=== PATIENT | female | born 1965 | race Caucasian/White ===

== ENCOUNTER 2018-04-25 10:04 | Observation (INO) | payer OTHER, SELFPAY ==
[2018-04-06 11:04] VITALS: BP 121/77; PULSE 72; RESP 17; TEMP 36.6; O2SAT 97; BMI 43.2
[2018-04-06 11:40] LABS: Absolute Lymphocyte Count 2.85 X10^3/ul (0.83-4.51); Absolute Neutrophil Count 6.3 X10^3/uL (2.0-7.7); Basophil# 0.03 X10^3/uL; Basophil% 0.3 % (0-1); Eosinophil# 0.32 X10^3/uL; Eosinophils% 3.1 % (0-5); Hematocrit 42.3 % (37-47); Hemoglobin 14.1 g/dl (12.0-15.0); Lymphocyte # 2.85 X10^3/ul (4.0); Lymphocyte % 27.8 % (19-41); Mean Corp Hgb Conc 33.3 g/gl (32-36); Mean Corpuscular Hgb 27.8 pg (27.0-32.0); Mean Corpuscular Volume 83.4 fL (81-99); Mean Platelet Vol. 9.6 fl (6.2-12.0); Monocyte# 0.66 X10^3/uL; Monocyte% 6.4 % (0-10); Neutrophil # 6.34 X10^3/uL (2.7-7.7); Platelet Count 302 K/mm3 (150-450); RBC Distribution Width CV 14.5 % (11.6-14.6); RBC Distribution Width SD 43.7 fl (35.1-43.9); Red Blood Count 5.07 M/mm3 (4.2-5.4); White Blood Count 10.2 K/mm3 (4.4-11.0)
[2018-04-06 11:41] LABS: POSITIVE COUNT NO; POSITIVE DIFFERENTIAL NO; POSITIVE MORPHOLOGY NO
[2018-04-06 12:08] LABS: Hemoglobin A1c 7.8 % (4.2-6.3)
[2018-04-06 12:26] LABS: Anion Gap 9 (5-15); BUN 17 mg/dL (7-18); BUN/Creat Ratio 27.4 RATIO (10-20); Calcium,Total 8.9 mg/dL (8.5-10.1); Chloride 107 mmol/L (98-107); Creatinine, Serum 0.62 mg/dL (0.55-1.02); EST Glomerular Filtration Rate 106 mL/min (>60); Est Glom Filt Rate - Afr Amer 129 mL/min (>60); Estimated Creatinine Clearance 93.34 ml/min; Glucose 115 mg/dL (74-106); Potassium 4.1 mmol/L (3.5-5.1); Sodium Level 141 mmol/L (136-145)
[2018-04-25] VITALS (10 sets, daily range): BP systolic 101–132; BP diastolic 53–79; PULSE 71–91; RESP 16–18; TEMP 36–36.7; O2SAT 93–98; BMI 43.2
[2018-04-25] MEDS: Acetaminophen 500 MG Tablet 1000 MG PO ×3 (07:13→21:22)
[2018-04-25] MEDS: oxyCODONE HCl Cr 10 MG Tablet PO (07:13)
[2018-04-25] MEDS: Celecoxib 200 MG Capsule 400 MG PO (07:14)
[2018-04-25 07:26] LABS: Bedside Glucose 172 mg/dL (70-110)
[2018-04-25] MEDS: Lactated Ringers 1,000 ML 999 ML IV (10:05)
--- NOTE | 2018-04-25 10:11 | PCM.OPRPT ---
Report of Operation Date of Procedure: 04/25/18 Pre-Operative Diagnosis: Right knee primary osteoarthritis Post-Operative Diagnosis: Right knee primary osteoarthritis Surgery/Procedure Performed:: Right total knee arthroplasty Description of Surgical Findings:: Well-balanced knee with good patella tracking battery assembler dry cell: Diane Butler Type of Anesthesia:: Spinal Anesthesiologist: Nav Car Special Medications: 100 mg clindamycin, 15 mg/kg vancomycin IV, 1 g TXA at incision, 1 g TXA closure, 10 mg Decadron, joint cocktail (5 mg Duramorph, 30 mL of 0.5% Ropivicaine, 1000 units of epinephrine, 30 mg of Toradol) Specimen's removed: Bony cuts Estimated Blood Loss (mL): 25 Fluids Replaced: 1000 L crystalloid Description of Procedure: Implants used: 1. Anny size 3 triathlon cruciate retaining distal femoral component, press-fit 2. [place] size 3 press-fit tibial baseplate 3. [place] X3 9 mm CS polyethylene 4. [place] X3 32 mm asymmetric patella Brief history operative indications: 52-year-old f with history of right knee osteoarthritis with radiographic findings with loss of joint space, osteophyte formation and subchondral sclerosis. Failed conservative measures as mentioned in the H&P. Discussion of total knee arthroplasty as well as risk and benefits were discussed the patient including but not limited to blood loss, DVTs, PEs, neurovascular damage, general risk of anesthesia including loss of life, and stiffness or instability were discussed with patient. Patient demonstrated understanding and was able to sign informed consent. Procedure: On the date of procedure patient's right lower extremity was marked in the preoperative area. The patient was then taken back to the operating room where the patient was placed on the table in the supine position. All bony prominences were identified a well-padded. Anesthesia assumed control of the C-spine and airway and remained controlled throughout the remainder of the procedure. A tourniquet was placed on the right upper thigh and the leg was prepped in a sterile fashion. The surgeon then scrubbed at this time. Upon reentering the room the right lower extremity was draped in a standard orthopedic fashion. A timeout was then called and everyone agreed upon the side, the site, the procedure to be performed, patient's identity and antibiotics given. Esmarch bandage was used to exsanguinate the extremity and the tourniquet was placed up to 250 mmHg with the knee in flexion. A midline skin incision was made and sharp dissection was taken down through skin subcutaneous tissue and fat. The standard medial parapatellar incision was made and the patella was subluxed laterally. The standard deep MCL release was done and the fat pad was resected. Next our attention was directed to the femur. Navigation pins were placed, navigation was registered. The distal femoral cutting block was pinned into place and 9 mm of distal femur resection was completed. The distal femoral cut was verified with navigation. The knee was then placed in deep flexion in the standard Neuro Hero sizing guide was used to place the femoral component in 3? external rotation based on the posterior condyles. A size 3 4-in-1 cutting block was selected and pinned into place. The anterior cut was then made and checked for notching. The subsequent anterior chamfer cuts, posterior condylar cuts and posterior chamfer cuts were made while ensuring the MCL and LCL were protected. Our attention was then turned to the tibia where the navigation pins were placed, navigation was registered. State tibial cutting guide was used to make the appropriate tibial cut 90 degrees from the mechanical axis. Navigation was then used to verify the cut. A size 3 tibial base plate was selected. the knee was flexed to 90 degrees and the soft tissues and posterior osteophytes were removed from the joint. 40 cc of the periarticular injection was injected into the posterior medial corner of the joint. The appropriate trials were then placed on the femur and tibia. A trial polyethylene was trialed to ensure proper balancing and stability of the knee. Patella tracking, was then verified and corrected appropriately as needed. The appropriate tibial internal rotation was then marked with a bovie. Our attention was then directed to the patella. The patella was everted and a flat resection was made. The lug holes were drilled and the patella trial was placed. Patellar tracking was checked and deemed appropriate. Once we were happy lug holes were drilled for the femur and trial components were removed. the tibia was subluxed and pinned into place and the keel was punched and the canal was reamed. Final components were verified and opened, and cement was mixed in a vacuum. Neuro Hero Simplex cement was used. The wound was copiously irrigated with normal saline. When the cement was ready the components were impacted into place starting with the tibia, femur and finally cementing the patella. The trial poly component was placed and the knee was placed in full extension. All excess cement was removed in the process. Once the cement had cured the tracking, alignment and balance were verified and a size 9 mm polyethylene component was placed. Once the final components were placed the wound was copiously irrigated with normal saline solution and the periarticular injection was given. The wound was closed in a layer kapadia fashion using #1 vicryl interrupted sutures for the arthrotomy, 2-0 interrupted Vicryl suture for the subcuticular layer and echo for final skin closure. A sterile compressive dressing was then placed. The patient was then awakened from anesthesia, transferred to the [facility] and transferred to the PACU for recovery. Post op plan DVT ppx: ASA 325mg, thigh high compression stockings Follow up: in office in 2 weeks for wound check PT: to start POD #0 at hospital, outpatient PT should be arranged. Grafts/Implants Used: Anny triathlon total knee - Complications None - Admit VTE Documentation VTE Present on Admission: No VTE Mechan Device Prophylaxis: SCD's, Thigh High MADELEINE Hose VTE Pharm Prophylaxis ordered?: Yes
[2018-04-25] MEDS: Scopolamine 1mg/72hr Patch 1 PATCH TD (10:15)
--- NOTE | 2018-04-25 10:16 | OP.PCM_ITS ---
Report of Operation Date of Procedure: 04/25/18 Pre-Operative Diagnosis: Right knee primary osteoarthritis Post-Operative Diagnosis: Right knee primary osteoarthritis Surgery/Procedure Performed:: Right total knee arthroplasty Description of Surgical Findings:: Well-balanced knee with good patella tracking underwriting internship: Diane Butler Type of Anesthesia:: Spinal Anesthesiologist: Nav Car Special Medications: 100 mg clindamycin, 15 mg/kg vancomycin IV, 1 g TXA at incision, 1 g TXA closure, 10 mg Decadron, joint cocktail (5 mg Duramorph, 30 mL of 0.5% Ropivicaine, 1000 units of epinephrine, 30 mg of Toradol) Specimen's removed: Bony cuts Estimated Blood Loss (mL): 25 Fluids Replaced: 1000 L crystalloid Description of Procedure: Implants used: 1. Anny size 3 triathlon cruciate retaining distal femoral component, press- fit 2. Anny size 3 press-fit tibial baseplate 3. [place] X3 9 mm CS polyethylene 4. Anny X3 32 mm asymmetric patella Brief history operative indications: 52-year-old f with history of right knee osteoarthritis with radiographic findings with loss of joint space, osteophyte formation and subchondral sclerosis. Failed conservative measures as mentioned in the H&P. Discussion of total knee arthroplasty as well as risk and benefits were discussed the patient including but not limited to blood loss, DVTs, PEs, neurovascular damage , general risk of anesthesia including loss of life, and stiffness or instability were discussed with patient. Patient demonstrated understanding and was able to sign informed consent. Procedure: On the date of procedure patient's right lower extremity was marked in the preoperative area. The patient was then taken back to the operating room where the patient was placed on the table in the supine position. All bony prominences were identified a well-padded. Anesthesia assumed control of the C- spine and airway and remained controlled throughout the remainder of the procedure. A tourniquet was placed on the right upper thigh and the leg was prepped in a sterile fashion. The surgeon then scrubbed at this time. Upon reentering the room the right lower extremity was draped in a standard orthopedic fashion. A timeout was then called and everyone agreed upon the side , the site, the procedure to be performed, patient's identity and antibiotics given. Esmarch bandage was used to exsanguinate the extremity and the tourniquet was placed up to 250 mmHg with the knee in flexion. A midline skin incision was made and sharp dissection was taken down through skin subcutaneous tissue and fat. The standard medial parapatellar incision was made and the patella was subluxed laterally. The standard deep MCL release was done and the fat pad was resected. Next our attention was directed to the femur. Navigation pins were placed, navigation was registered. The distal femoral cutting block was pinned into place and 9 mm of distal femur resection was completed. The distal femoral cut was verified with navigation. The knee was then placed in deep flexion in the standard [email or web address] sizing guide was used to place the femoral component in 3? external rotation based on the posterior condyles. A size 3 4-in-1 cutting block was selected and pinned into place. The anterior cut was then made and checked for notching. The subsequent anterior chamfer cuts, posterior condylar cuts and posterior chamfer cuts were made while ensuring the MCL and LCL were protected. Our attention was then turned to the tibia where the navigation pins were placed , navigation was registered. [employer] tibial cutting guide was used to make the appropriate tibial cut 90 degrees from the mechanical axis. Navigation was then used to verify the cut. A size 3 tibial base plate was selected. the knee was flexed to 90 degrees and the soft tissues and posterior osteophytes were removed from the joint. 40 cc of the periarticular injection was injected into the posterior medial corner of the joint. The appropriate trials were then placed on the femur and tibia. A trial polyethylene was trialed to ensure proper balancing and stability of the knee. Patella tracking, was then verified and corrected appropriately as needed. The appropriate tibial internal rotation was then marked with a bovie. Our attention was then directed to the patella. The patella was everted and a flat resection was made. The lug holes were drilled and the patella trial was placed. Patellar tracking was checked and deemed appropriate. Once we were happy lug holes were drilled for the femur and trial components were removed. the tibia was subluxed and pinned into place and the keel was punched and the canal was reamed. Final components were verified and opened, and cement was mixed in a vacuum. [employer] Simplex cement was used. The wound was copiously irrigated with normal saline. When the cement was ready the components were impacted into place starting with the tibia, femur and finally cementing the patella. The trial poly component was placed and the knee was placed in full extension. All excess cement was removed in the process. Once the cement had cured the tracking, alignment and balance were verified and a size 9 mm polyethylene component was placed. Once the final components were placed the wound was copiously irrigated with normal saline solution and the periarticular injection was given. The wound was closed in a layer kapadia fashion using #1 vicryl interrupted sutures for the arthrotomy, 2-0 interrupted Vicryl suture for the subcuticular layer and echo for final skin closure. A sterile compressive dressing was then placed. The patient was then awakened from anesthesia, transferred to the [facility] and transferred to the PACU for recovery. Post op plan DVT ppx: ASA 325mg, thigh high compression stockings Follow up: in office in 2 weeks for wound check PT: to start POD #0 at hospital, outpatient PT should be arranged. Grafts/Implants Used: Anny triathlon total knee - Complications None - Admit VTE Documentation VTE Present on Admission: No VTE Mechan Device Prophylaxis: SCD's, Thigh High MADELEINE Hose VTE Pharm Prophylaxis ordered?: Yes
--- NOTE | 2018-04-25 10:45 | RAD_ITS ---
STUDY: X-RAY - RIGHT KNEE REASON FOR EXAM: Female, 52 years old. Total knee replacement. TECHNIQUE: AP and lateral view(s) of the knee. COMPARISON: None. FINDINGS: Normal visualized distal femur. Normal visualized proximal tibia and fibula. Normal proximal tibiofibular articulation. The patient is status post total knee replacement. There is good alignment. Postoperative soft tissue changes. RAD/Knee 1 or 2 Views IMPRESSION: Status post total knee replacement. There is good alignment. Postoperative soft tissue changes. Electronically Signed: Dada Moreira MD at 14:17 EDT Tel [phone], Service support ,
[2018-04-25 11:16] LABS: Bedside Glucose 170 mg/dL (70-110)
[2018-04-25] MEDS: oxyCODONE 5 MG Tablet PO ×2 (16:00→23:04)
[2018-04-25] MEDS: VALSARTAN 40 MG TABLET PO (16:01)
[2018-04-25] MEDS: Aspirin 325 MG Tablet PO (16:01)
[2018-04-25 16:50] LABS: Bedside Glucose 114 mg/dL (70-110)
[2018-04-25] MEDS: Lactated Ringers 1,000 ML 125 ML IV (20:00)
[2018-04-25] MEDS: Senna/Docusate Sodium 1 Tablet 2 TABLET PO (21:22)
[2018-04-25] MEDS: Atorvastatin Calcium 10 MG Tablet PO (21:22)
[2018-04-25 22:31] LABS: Bedside Glucose 155 mg/dL (70-110)
[2018-04-25] MEDS: Ketorolac 15 MG/ML Vial IV (23:04)
[2018-04-25] MEDS: 0.9% NaCl Peripheral Flush Adult/Peds IV (23:04)
[2018-04-26 03:27] VITALS: BP 96/56; PULSE 94; RESP 18; TEMP 36.8; O2SAT 99
[2018-04-26] MEDS: 0.9% NaCl Peripheral Flush Adult/Peds IV (05:58)
[2018-04-26 06:02] LABS: Hematocrit 39.2 % (37-47); Hemoglobin 12.7 g/dl (12.0-15.0); Mean Corp Hgb Conc 32.4 g/gl (32-36); Mean Corpuscular Hgb 27.8 pg (27.0-32.0); Mean Corpuscular Volume 85.8 fL (81-99); Mean Platelet Vol. 9.9 fl (6.2-12.0); Platelet Count 235 K/mm3 (150-450); RBC Distribution Width CV 14.6 % (11.6-14.6); RBC Distribution Width SD 45.3 fl (35.1-43.9); Red Blood Count 4.57 M/mm3 (4.2-5.4); White Blood Count 11.2 K/mm3 (4.4-11.0)
[2018-04-26] MEDS: Ondansetron 4 MG/2 ML Vial IV (06:05)
[2018-04-26 06:06] LABS: Scan Indicated on CBC? Y/N NO
[2018-04-26 06:18] LABS: Anion Gap 7 (5-15); BUN 12 mg/dL (7-18); BUN/Creat Ratio 17.2 RATIO (10-20); Calcium,Total 8.5 mg/dL (8.5-10.1); Chloride 104 mmol/L (98-107); EST Glomerular Filtration Rate 93 mL/min (>60); Est Glom Filt Rate - Afr Amer 112 mL/min (>60); Estimated Creatinine Clearance 82.67 ml/min; Glucose 134 mg/dL (74-106); Potassium 4.1 mmol/L (3.5-5.1); Sodium Level 139 mmol/L (136-145)
[2018-04-26] MEDS: Insulin Lispro 100 UNIT/ML INSULN.PEN SC ×2 (06:57→11:19)
[2018-04-26 07:06] LABS: Bedside Glucose 163 mg/dL (70-110)
[2018-04-26 08:00] VITALS: BP 121/74; PULSE 83; RESP 18; TEMP 37.2; O2SAT 97
[2018-04-26] MEDS: Acetaminophen 500 MG Tablet 1000 MG PO ×2 (08:00→13:20)
[2018-04-26] MEDS: Aspirin 325 MG Tablet PO (08:00)
[2018-04-26] MEDS: Ferrous Sulfate 325 MG Tablet PO (08:00)
[2018-04-26] MEDS: Famotidine 20 MG Tablet PO (08:01)
[2018-04-26] MEDS: Senna/Docusate Sodium 1 Tablet 2 TABLET PO (08:01)
[2018-04-26] MEDS: oxyCODONE 5 MG Tablet PO ×2 (08:03→11:55)
--- NOTE | 2018-04-26 09:05 | PN.ORTHO_ITS ---
Subjective: The patient was sitting in bedside chair upon examination. Patient denies any chest pain, shortness of breath, dizziness, lightheadedness, nausea or vomiting , or calf pain. Pain is controlled on medications. No adverse overnight events. Patient does report soreness and pain in her right knee but medications are helpful. Patient is wishing to try to go home today. Objective: Vital signs stable and afebrile. Patient's current blood pressure is 121/74. Patient is able to plantarflex and dorsiflex actively. Sensation is intact to light touch to saphenous, sural, superficial and deep peroneal, and tibial distribution. Dressing is clean dry and intact. Negative Homans bilaterally, negative signs and symptoms of DVT. - Physical Exam General: Alert, Oriented x3, Cooperative, No apparent distress Vital Signs Temp Pulse Resp BP Pulse Ox 98.2 F 94 18 96/56 L 99 04/26/18 03:27 04/26/18 03:27 04/26/18 03:27 04/26/18 03:27 04/26/18 03:27 Oxygen Flow Rate (L/min) 1 Oxygen Delivery Method Nasal Cannula Weight: 119.8 kg Body Mass Index (BMI) 43.2 Finger Stick Blood Glucose 170 Intake and Output for Last 24 Hours 04/24/18 04/25/18 04/26/18 23:59 23:59 23:59 Intake Total 3363 / 3363 1284 / 1284 Balance 3363 / 3363 1284 / 1284 Laboratory Tests Past 24 Hrs 04/26/18 04/26/18 05:08 05:08 WBC 11.2 H RBC 4.57 Hgb 12.7 Hct 39.2 MCV 85.8 MCH 27.8 MCHC 32.4 RDW 14.6 RDW Differential 45.3 H Plt Count 235 MPV 9.9 Sodium 139 Potassium 4.1 Chloride 104 Carbon Dioxide 28.0 Anion Gap 7 BUN 12 Creatinine 0.70 Estim Creat Clear Calc 82.67 Est GFR (MDRD) Af Amer 112 Est GFR (MDRD) Non-Af 93 BUN/Creatinine Ratio 17.2 Glucose 134 H Calcium 8.5 POC Glucose 04/26/18 04/25/18 04/25/18 06:53 21:31 16:06 POC Glucose 163 H 155 H 114 H 04/25/18 11:11 POC Glucose 170 H Medical Necessity - Tobacco Use Smoking Status: Never smoker Assessment/Plan 1. S/P right total knee arthroplasty POD #1 2. Continue Pain Medications: Tylenol and OxyIR 3. DVT Prophylaxis: Aspirin 325 mg twice daily 4. PT/OT: Weightbearing as tolerated 5. H & H: 12.7/39.2, asymptomatic 6. Leukocytosis: Currently 13.4, afebrile. Patient did receive Decadron intraoperatively 7. Encouraged Incentive Spirometry 8. Disposition: Plan will be for discharge home this afternoon if pain is controlled and patient tolerates physical therapy. Prescriptions will be attached to chart. Patient will follow-up per postop instructions.
--- NOTE | 2018-04-26 09:10 | PCM.DC.TKR ---
Discharge Diet: No Restrictions Discharge Activity: May Not Drive May shower in (days): 1 - Turned dressing away from water Ice area for (Minutes): 20 - every hour while awake. Weight Bearing Status: Weight bearing as tolerated Elevate: Operative Extremity Additional Activity Instructions:: Wear elastic stockings for 2 weeks after your surgery. Call your doctor if your incision/area has: Continuous Slow Oozing, Sudden Increased Bleeding, Increased Pain/ Swelling, Increased Redness, Foul Smelling Discharge Call your doctor if you observe: Fever of 101 or Higher, Coldness, Increased Pain, Numbness or Tingling, Change in Color, Calf discomfort, Uncontrolled pain Remove Dressing in (days):: 3 - Okay to take dressing off on April 29, 2018 Additional Instructions: Follow [facility] postop instructions Do not take diclofenac while taking regular dose aspirin for DVT prophylaxis Allergies/Adverse Reactions: Allergies cucumber Allergy (Verified 04/06/18 10:59) Food Allergy Penicillins [PCN] Allergy (Verified 04/06/18 10:59) Unknown erythromycin base Adverse Reaction (Verified 04/06/18 10:59) Upset Stomach Medications to take at Discharge Ferrous Sulfate [Iron] 325 mg PO DAILY 05/15/17 Atorvastatin Calcium [Lipitor] 10 mg PO QHS 10/11/17 Insulin Degludec/Liraglutide [Xultophy 100 Unit-3.6MG/ml Pen] 24 unit SQ QHS 10/11/17 Metformin HCl [Metformin HCl ER] 1,000 mg PO DINNER 10/11/17 Valsartan [Diovan] 40 mg PO DINNER 10/11/17 Cholecalciferol (Vitamin D3) [Vitamin D3] 400 unit PO DAILY 04/06/18 Acetaminophen [Tylenol] 1,000 mg PO Q8 #90 tab 04/26/18 Aspirin 325 mg PO BIDCM #30 tab 04/26/18 Famotidine [Pepcid] 20 mg PO DAILY #30 tab 04/26/18 Oxycodone [Oxyir] 5 - 10 mg PO Q4H PRN PRN 7 Days #84 tab 04/26/18 The following prescriptions were given: Oxycodone [Oxyir] 5 - 10 mg PO Q4H PRN PRN 7 Days #84 tab PRN Reason: Mod-Severe Pain (4-08/15) Acetaminophen [Tylenol] 1,000 mg PO Q8 #90 tab Famotidine [Pepcid] 20 mg PO DAILY #30 tab Aspirin 325 mg PO BIDCM #30 tab Primary Care Physician: Emmett Stinson NP-C [Primary Care Provider] - Please Follow Up With: Tim Hung PA-C When: 05/07/18 @ 1:30 pm Please Follow Up With: physical therapy When: will be scheduled by case assistant
--- NOTE | 2018-04-26 09:16 | DCINST_ITS ---
Discharge Diet: No Restrictions Discharge Activity: May Not Drive May shower in (days): 1 - Turned dressing away from water Ice area for (Minutes): 20 - every hour while awake. Weight Bearing Status: Weight bearing as tolerated Elevate: Operative Extremity Additional Activity Instructions:: Wear elastic stockings for 2 weeks after your surgery. Call your doctor if your incision/area has: Continuous Slow Oozing, Sudden Increased Bleeding, Increased Pain/ Swelling, Increased Redness, Foul Smelling Discharge Call your doctor if you observe: Fever of 101 or Higher, Coldness, Increased Pain, Numbness or Tingling, Change in Color, Calf discomfort, Uncontrolled pain Remove Dressing in (days):: 3 - Okay to take dressing off on April 29, 2018 Additional Instructions: Follow [facility] postop instructions Do not take diclofenac while taking regular dose aspirin for DVT prophylaxis Allergies/Adverse Reactions: Allergies cucumber Allergy (Verified 04/06/18 10:59) Food Allergy Penicillins [PCN] Allergy (Verified 04/06/18 10:59) Unknown erythromycin base Adverse Reaction (Verified 04/06/18 10:59) Upset Stomach Medications to take at Discharge Ferrous Sulfate [Iron] 325 mg PO DAILY 05/15/17 Atorvastatin Calcium [Lipitor] 10 mg PO QHS 10/11/17 Insulin Degludec/Liraglutide [Xultophy 100 Unit-3.6MG/ml Pen] 24 unit SQ QHS 04/22 Metformin HCl [Metformin HCl ER] 1,000 mg PO DINNER 10/11/17 Valsartan [Diovan] 40 mg PO DINNER 10/11/17 Cholecalciferol (Vitamin D3) [Vitamin D3] 400 unit PO DAILY 04/06/18 Acetaminophen [Tylenol] 1,000 mg PO Q8 #90 tab 04/26/18 Aspirin 325 mg PO BIDCM #30 tab 04/26/18 Famotidine [Pepcid] 20 mg PO DAILY #30 tab 04/26/18 Oxycodone [Oxyir] 5 - 10 mg PO Q4H PRN PRN 7 Days #84 tab 04/26/18 The following prescriptions were given: Oxycodone [Oxyir] 5 - 10 mg PO Q4H PRN PRN 7 Days #84 tab PRN Reason: Mod-Severe Pain (4-08/15) Acetaminophen [Tylenol] 1,000 mg PO Q8 #90 tab Famotidine [Pepcid] 20 mg PO DAILY #30 tab Aspirin 325 mg PO BIDCM #30 tab Primary Care Physician: Emmett Stinson NP-C [Primary Care Provider] - Please Follow Up With: Tim Hung PA-C When: 05/07/18 @ 1:30 pm Please Follow Up With: physical therapy When: will be scheduled by piano case maker
[2018-04-26 11:06] VITALS: O2SAT 95
[2018-04-26 11:50] LABS: Bedside Glucose 200 mg/dL (70-110)
--- NOTE | 2018-04-26 14:04 | PCA ---
pt in therapy
[2018-04-26 14:30] VITALS: BP 144/87; PULSE 78; RESP 18; TEMP 36.6; O2SAT 96
== END 2018-04-26 14:45 | disposition home or self-care (01) ==
LOC: SDC 11:16
PROVIDERS: Admitting Provider Specialist; Family Provider Nurse Practitioner Family; PCP Nurse Practitioner Family; Visit Provider Specialist
PROC: (CPT 27447; principal; 2018-04-25 08:30)
DX: M17.11 Unilateral primary osteoarthritis, right knee (principal); E11.9 Type 2 diabetes mellitus without complications; I10 Essential (primary) hypertension; E78.00 Pure hypercholesterolemia, unspecified; Z79.899 Other long term (current) drug therapy; Z79.84 Long term (current) use of oral hypoglycemic drugs; E66.9 Obesity, unspecified; Z68.41 Body mass index [BMI] 40.0-44.9, adult; Z71.3 Dietary counseling and surveillance; G25.81 Restless legs syndrome
CPT/HCPCS: 27447; 64447; 36415; 73560; 80048; 82962; 83036; 85025; 85027; 87081; 96361; 96365; 96366; 96375; 97116; 97162; 97165; 97530; 97802; 99218; C1776; J7040; J7120; A4216; G0378; G0379; J2405; J3490